=== PATIENT | female | born 2000 | race Two or more races ===

== ENCOUNTER 2023-08-02 20:28 | Emergency (ER) | payer SELFPAY ==
[2023-08-02] MEDS ORDERED: CALCIUM (21:57)
[2023-08-02] MEDS ORDERED: PNV91TAB10 PO (21:57)
[2023-08-02] MEDS ORDERED: FERR-212 PO (21:57)
== END 2023-08-02 20:45 | disposition home or self-care (01) ==
LOC: MED 20:28
DX: O26.893 Other specified pregnancy related conditions, third trimester (principal); Z53.21 Procedure and treatment not carried out due to patient leaving prior to being seen by health care provider; Z3A.30 30 weeks gestation of pregnancy

== ENCOUNTER 2023-08-02 21:00 | Observation (INO) | payer MEDICAID ==
[~2023-08-02] VITALS: Ht 157.5 cm; Wt 45.8 kg
[2023-08-02] MEDS ORDERED: CALCIUM (21:57)
[2023-08-02] MEDS ORDERED: PNV91TAB10 PO (21:57)
[2023-08-02] MEDS ORDERED: FERR-212 PO (21:57)
[2023-08-02 22:01] VITALS: BP 118/57; PULSE 125; RESP 18; TEMP 100; O2SAT 98
[2023-08-03] MEDS ORDERED: cefTRIAXone 1,000 MG in LIDOCAINE MPF 1% 2.1 ML IM ONE (00:25)
[2023-08-03] MEDS ORDERED: cefTRIAXone 1,000 MG VIAL ONE (00:34)
== END 2023-08-03 16:45 | disposition home or self-care (01) ==
LOC: MLD 21:00
PROVIDERS: ADMIT Obstetrics & Gynecology; ATTEND Obstetrics & Gynecology
DX: O26.893 Other specified pregnancy related conditions, third trimester (principal); R10.9 Unspecified abdominal pain; Z20.822 Contact with and (suspected) exposure to COVID-19; Z3A.37 37 weeks gestation of pregnancy
CPT/HCPCS: 76770; 81000; 87426; 96372; G0378; J0696; J2001; Q0092